=== PATIENT | male | born 1990 | race African-American/Black ===

== ENCOUNTER 2023-07-19 09:08 | Inpatient (IN) | payer OTHER ==
[~2023-07-19] VITALS: Ht 182.9 cm; Wt 96.0 kg
[~2023-07-19 09:08] MED LIST: CARA1TAB6 PO; CYMB1CAP5 PO; D 50CAP2 PO; DICL100G10 TOP; DULO1CAP4 PO; GABA-282 PO; GABA-284 PO; HYDR-3363 PO; LIDO1PAD TOP; OMEP10CASR PO; OMEP1CAP73 PO; PRAZ5CAP PO; RIZA5TAB2 PO
[2023-07-19] MEDS ORDERED: RIZA10TA2 PO (09:24)
[2023-07-19] MEDS ORDERED: GABA-282 (09:24)
[2023-07-19] MEDS ORDERED: HYDR50TA70 PO (09:24)
[2023-07-19 10:03] LABS: HEMATOCRIT 47.4 % (42.0-52.0); HEMOGLOBIN 14.9 g/dl (13.5-17.5); MEAN CORPUSCULAR HEMOGLOBIN 26.6 pg (27.0-33.0); MEAN CORPUSCULAR HGB CONC 31.4 g/dl (32.0-36.5); MEAN CORPUSCULAR VOLUME 84.5 fl (80.0-96.0); PLATELET COUNT, AUTOMATED 224 10^3/uL (150-450); RED BLOOD COUNT 5.61 10^6/uL (4.30-6.10); WHITE BLOOD COUNT 5.7 10^3/uL (4.0-10.0)
[2023-07-19 10:22] LABS: AMPHETAMINES LEVEL URINE NEGATIVE (NEGATIVE); BARBITURATES URINE NEGATIVE (NEGATIVE); BENZODIAZEPINES URINE NEGATIVE (NEGATIVE); COCAINE METABOLITE URINE NEGATIVE (NEGATIVE); METHADONE URINE NEGATIVE (NEGATIVE)
[2023-07-19 10:23] LABS: CANNABINOIDS URINE NEGATIVE (NEGATIVE); OPIATES URINE NEGATIVE (NEGATIVE); PHENCYCLIDINE URINE NEGATIVE (NEGATIVE)
[2023-07-19 10:33] LABS: ETHYL ALCOHOL (ETHANOL) < 0.003 % (0.000-0.010)
[2023-07-19 10:35] LABS: ALBUMIN 4.4 G/DL (3.2-5.2); ALKALINE PHOSPHATASE 63 U/L (46-116); ALT/SGPT 34 U/L (7.0-40); AST/SGOT 20 U/L (<34); BILIRUBIN,DIRECT 0.2 MG/DL (<0.4); BILIRUBIN,TOTAL 0.6 MG/DL (0.3-1.2); BLOOD UREA NITROGEN 10 MG/DL (9-23); CALCIUM LEVEL 9.7 MG/DL (8.5-10.1); CARBON DIOXIDE LEVEL 32 MMOL/L (20-31); CHLORIDE LEVEL 104 MMOL/L (98-107); CREATININE FOR GFR 0.93 MG/DL (0.70-1.30); GLOMERULAR FILTRATION RATE > 60.0 (>60); GLUCOSE, FASTING 89 MG/DL (60-100); POTASSIUM SERUM 4.1 MMOL/L (3.5-5.1); SALICYLATE LEVEL < 3.0 MG/DL (<30); SODIUM LEVEL 139 MMOL/L (136-145)
[2023-07-19 10:38] LABS: THYROID STIMULATING HORMONE 0.932 uIU/ML (0.55-4.78)
[2023-07-19] MEDS ORDERED: DULO30CA9 PO (11:01)
[2023-07-19] MEDS ORDERED: ACET500T15 PO (11:01)
[2023-07-19] MEDS ORDERED: HOME MED LIST COMPLETE! XX SCH (11:10)
[2023-07-19] MEDS ORDERED: MOM 30ML SUSPENSION UDC PO PRN (13:30)
[2023-07-19 15:02] VITALS: BP 136/84; TEMP 98.1; O2SAT 96
[2023-07-20] MEDS: ACETAMINOPHEN TAB 650MG DOSE (2X325MG) PO PRN (06:04)
[2023-07-20] MEDS: MAALOX 30 ML SUSP *UDC PO PRN (06:04)
[2023-07-20 06:52] VITALS: BP 128/98; TEMP 97.4; O2SAT 100
[2023-07-20] MEDS ORDERED: RIZATRIPTAN BENZOATE 10 MG TAB PO PRN (14:45)
[2023-07-20 16:04] VITALS: BP 129/79; TEMP 97.7; O2SAT 98
[2023-07-20] MEDS: SUCRALFATE 1 GM TAB PO SCH (16:54)
[2023-07-20] MEDS: hydrOXYzine 50 MG TAB PO SCH (21:11)
[2023-07-20] MEDS: AMITRIPTYLINE 10MG TABLET PO SCH (21:11)
[2023-07-20] MEDS: traZODone 50 MG TAB PO PRN (21:11)
[2023-07-20] MEDS: PRAZOSIN 1 MG CAP PO SCH (21:13)
[2023-07-21 06:48] VITALS: BP 119/60; TEMP 97.6; O2SAT 100
[2023-07-21] MEDS: LIDOCAINE 5% (LIDODERM) PATCH TOP SCH (08:19)
[2023-07-21] MEDS: OMEPRAZOLE 20MG CAP PO SCH (08:25)
[2023-07-21] MEDS: GABAPENTIN 300 MG CAP PO PRN (08:25)
[2023-07-21] MEDS: diphenhydrAMINE 25MG CAP PO PRN (08:25)
[2023-07-21] MEDS: DULoxetine 30MG CAPSULE (CYMBALTA) PO SCH (14:10)
[2023-07-21 16:31] VITALS: BP 138/65; TEMP 98; O2SAT 100
[2023-07-22 06:31] VITALS: BP 139/74; TEMP 98.1; O2SAT 100
[2023-07-22] MEDS: IBUPROFEN 400MG TAB PO PRN (08:29)
[2023-07-22] MEDS: DULoxetine 30MG CAPSULE (CYMBALTA) PO ONE (12:46)
[2023-07-22 15:27] VITALS: BP 143/86; TEMP 98; O2SAT 99
[2023-07-22 21:34] VITALS: BP 148/84
[2023-07-22 21:37] VITALS: BP 148/84
[2023-07-23 06:28] VITALS: BP 139/82; TEMP 97.7; O2SAT 99
[2023-07-23] MEDS: DULoxetine 30MG CAPSULE (CYMBALTA) PO SCH (08:25)
[2023-07-23] MEDS ORDERED: CYMB1CAP5 PO (09:28)
[2023-07-23] MEDS ORDERED: TRAZ-252 PO (09:28)
[2023-07-23] MEDS ORDERED: HYDR50TA70 PO (09:28)
== END 2023-07-23 13:21 | disposition home or self-care (01) | DRG 881 ==
LOC: M ED 09:08 → M ED INP 13:29 → M PSY 14:39
PROVIDERS: ADMIT Student in an Organized Health Care Education/Training Program; ATTEND Student in an Organized Health Care Education/Training Program
DX: F32.A Depression, unspecified (principal); R45.851 Suicidal ideations; Z91.82 Personal history of military deployment; Z79.899 Other long term (current) drug therapy; K21.9 Gastro-esophageal reflux disease without esophagitis; G47.33 Obstructive sleep apnea (adult) (pediatric); F41.9 Anxiety disorder, unspecified

== ENCOUNTER 2023-09-06 09:55 | Inpatient (IN) | payer OTHER ==
[~2023-09-06] VITALS: Ht 182.9 cm; Wt 95.5 kg
[~2023-09-06 09:55] MED LIST changes: +ACET500T15 PO; +DULO30CA9 PO; +GABA-282; +HYDR50TA70 PO; +RIZA10TA2 PO; +TRAZ-252 PO
[2023-09-06 10:43] LABS: HEMATOCRIT 43.4 % (42.0-52.0); MEAN CORPUSCULAR HEMOGLOBIN 26.9 pg (27.0-33.0); MEAN CORPUSCULAR HGB CONC 32.3 g/dl (32.0-36.5); MEAN CORPUSCULAR VOLUME 83.5 fl (80.0-96.0); PLATELET COUNT, AUTOMATED 204 10^3/uL (150-450); WHITE BLOOD COUNT 6.1 10^3/uL (4.0-10.0)
[2023-09-06 11:14] LABS: AMPHETAMINES LEVEL URINE NEGATIVE (NEGATIVE); BARBITURATES URINE NEGATIVE (NEGATIVE); BENZODIAZEPINES URINE NEGATIVE (NEGATIVE); CANNABINOIDS URINE NEGATIVE (NEGATIVE); COCAINE METABOLITE URINE NEGATIVE (NEGATIVE); METHADONE URINE NEGATIVE (NEGATIVE); OPIATES URINE NEGATIVE (NEGATIVE); PHENCYCLIDINE URINE NEGATIVE (NEGATIVE)
[2023-09-06 11:29] LABS: ETHYL ALCOHOL (ETHANOL) 0.003 % (0.000-0.010)
[2023-09-06 11:31] LABS: ALBUMIN 4.1 G/DL (3.2-5.2); ALKALINE PHOSPHATASE 59 U/L (46-116); ALT/SGPT 30 U/L (7.0-40); AST/SGOT 20 U/L (<34); BILIRUBIN,DIRECT 0.1 MG/DL (<0.4); BILIRUBIN,TOTAL 0.4 MG/DL (0.3-1.2); BLOOD UREA NITROGEN 10 MG/DL (9-23); CALCIUM LEVEL 9.7 MG/DL (8.5-10.1); CARBON DIOXIDE LEVEL 31 MMOL/L (20-31); CHLORIDE LEVEL 105 MMOL/L (98-107); GLOMERULAR FILTRATION RATE > 60.0 (>60); GLUCOSE, FASTING 88 MG/DL (60-100); POTASSIUM SERUM 3.8 MMOL/L (3.5-5.1); SALICYLATE LEVEL < 3.0 MG/DL (<30); SODIUM LEVEL 141 MMOL/L (136-145); TOTAL PROTEIN 7.2 G/DL (5.7-8.2)
[2023-09-06 11:33] LABS: THYROID STIMULATING HORMONE 1.015 uIU/ML (0.55-4.78)
[2023-09-06] MEDS ORDERED: DULO1CAP5 PO (13:05)
[2023-09-06] MEDS ORDERED: TRAZ-252 PO (13:08)
[2023-09-06] MEDS ORDERED: HOME MED LIST COMPLETE! XX SCH (13:10)
[2023-09-06] MEDS ORDERED: diphenhydrAMINE 25MG CAP PO PRN (15:10)
[2023-09-06] MEDS ORDERED: IBUPROFEN 400MG TAB PO PRN (15:10)
[2023-09-06] MEDS ORDERED: MAALOX 30 ML SUSP *UDC PO PRN (15:10)
[2023-09-06] MEDS ORDERED: MOM 30ML SUSPENSION UDC PO PRN (15:10)
[2023-09-06 16:48] VITALS: BP 134/98; TEMP 97.1; O2SAT 100
[2023-09-06] MEDS: traZODone 50 MG TAB PO PRN (20:36)
[2023-09-07 06:06] VITALS: BP 131/76; TEMP 98.1; O2SAT 99
[2023-09-07] MEDS: ACETAMINOPHEN TAB 650MG DOSE (2X325MG) PO PRN (08:23)
[2023-09-07] MEDS ORDERED: RIZATRIPTAN BENZOATE 10 MG TAB PO PRN (09:00)
[2023-09-07] MEDS: LIDOCAINE 5% (LIDODERM) PATCH TOP SCH (09:00)
[2023-09-07] MEDS: DULoxetine 30MG CAPSULE (CYMBALTA) PO SCH (09:11)
[2023-09-07] MEDS: OMEPRAZOLE 20MG CAP PO SCH (09:11)
[2023-09-07 09:13] VITALS: BP 145/91
[2023-09-07] MEDS: PRAZOSIN 1 MG CAP PO SCH (09:13)
[2023-09-07] MEDS ORDERED: SUCRALFATE 1 GM TAB PO SCH (12:00)
[2023-09-07] MEDS ORDERED: hydrOXYzine 50 MG TAB PO SCH (21:00)
== END 2023-09-07 10:24 | disposition home or self-care (01) | DRG 880 ==
LOC: M ED 10:43 → M ED INP 15:06 → M PSY 16:40
PROVIDERS: ADMIT Student in an Organized Health Care Education/Training Program; ATTEND Student in an Organized Health Care Education/Training Program
DX: F41.9 Anxiety disorder, unspecified (principal); R45.851 Suicidal ideations; F32.A Depression, unspecified; Z63.5 Disruption of family by separation and divorce; Z91.82 Personal history of military deployment; Z79.899 Other long term (current) drug therapy

== ENCOUNTER → 2023-12-20 | Outpatient (REF) ==
[~2023-12-20] MED LIST changes: +DULO1CAP5 PO
[2023-12-20 15:44] LABS: APPEARANCE, URINE HAZY (CLEAR); BACTERIA, URINE AUTO NEGATIVE (NEGATIVE); BILIRUBIN, URINE AUTO NEGATIVE (NEGATIVE); BLOOD, URINE BLOOD 1+ (NEGATIVE); COLOR, URINE YELLOW (YELLOW); GLUCOSE, URINE (UA) AUTO NEGATIVE (NEGATIVE); KETONE, URINE AUTO NEGATIVE (NEGATIVE); LEUKOCYTE ESTERASE, URINE AUTO NEGATIVE (NEGATIVE); MUCUS, URINE SMALL (NEGATIVE); NITRITE, URINE AUTO NEGATIVE (NEGATIVE); PROTEIN, URINE AUTO NEGATIVE (NEGATIVE); RBC, URINE AUTO 3 /HPF (0-3); SPECIFIC GRAVITY URINE AUTO 1.028 (1.002-1.035); SQUAMOUS EPITHELIAL CELL UR AU 0 /HPF (0-6); UROBILINOGEN, URINE AUTO 0.2 mg/dL (0.0-2.0); WBC, URINE AUTO 1 /HPF (0-3)
[2023-12-20 16:33] LABS: HEMOGLOBIN A1c 5.2 % (4.0-6.0)
== END ==
LOC: M PLAIMG 13:01
PROVIDERS: ATTEND Nurse Practitioner Family
DX: M26.609 Unspecified temporomandibular joint disorder, unspecified side (principal); R73.03 Prediabetes

== ENCOUNTER 2024-02-04 07:49 | Day surgery (SDC) | payer OTHER ==
[~2024-02-04] VITALS: Ht 182.9 cm; Wt 96.6 kg
[2024-02-04] MEDS: NS 1,000 ML IV ONE (08:04)
[2024-02-04] MEDS ORDERED: fentaNYL 100 MCG/2 ML INJECTION As Ordered ONE (08:45)
[2024-02-04] MEDS ORDERED: LIDOCAINE 2% 100MG/5ML SDV (FOR ANES.) As Ordered ONE (08:46)
[2024-02-04] MEDS ORDERED: propofoL 200 MG/20 ML VIAL As Ordered ONE (08:46)
[2024-02-04 09:36] VITALS: BP 137/93; O2SAT 95
== END 2024-02-04 09:41 | disposition home or self-care (01) ==
LOC: M OPP 07:49
PROVIDERS: ATTEND Internal Medicine Gastroenterology
DX: K31.84 Gastroparesis (principal); R13.10 Dysphagia, unspecified; R12 Heartburn; G47.33 Obstructive sleep apnea (adult) (pediatric); Z99.89 Dependence on other enabling machines and devices; Z79.1 Long term (current) use of non-steroidal anti-inflammatories (NSAID); Z79.899 Other long term (current) drug therapy
CPT/HCPCS: 43235; J3010

== ENCOUNTER 2024-02-06 09:38 | Emergency (ER) | payer OTHER ==
[~2024-02-06] VITALS: Ht 182.9 cm; Wt 95.2 kg
[2024-02-06] MEDS ORDERED: BACL10TA2 (09:55)
[2024-02-06] MEDS ORDERED: MONT10TA97 (09:55)
[2024-02-06] MEDS ORDERED: AMIT25TA19 (09:55)
[2024-02-06] MEDS ORDERED: LEXA5TAB13 (09:55)
[2024-02-06 11:31] LABS: BASO % 0.5 % (0.0-1.0); EOS # 0.1 10^3/uL (0.0-0.5); EOS % 2.4 % (0.0-3.0); HEMOGLOBIN 14.8 g/dl (13.5-17.5); LYMPH # 2.4 10^3/uL (1.5-5.0); LYMPH % 44.7 % (24.0-44.0); MEAN CORPUSCULAR HEMOGLOBIN 26.9 pg (27.0-33.0); MEAN CORPUSCULAR HGB CONC 32.2 g/dl (32.0-36.5); MEAN CORPUSCULAR VOLUME 83.5 fl (80.0-96.0); MONO # 0.4 10^3/uL (0.0-0.8); MONO % 8.1 % (2.0-8.0); NEUTROPHILS # 2.4 10^3/uL (1.5-8.5); NEUTROPHILS % 44.3 % (36.0-66.0); PLATELET COUNT, AUTOMATED 217 10^3/uL (150-450); RED BLOOD COUNT 5.51 10^6/uL (4.30-6.10); WHITE BLOOD COUNT 5.5 10^3/uL (4.0-10.0)
[2024-02-06 11:35] LABS: ERYTHROCYTE SEDIMENTATION RATE 32 mm/hr (0-15)
[2024-02-06] MEDS: PROCHLORPERAZINE 10MG 2ML VIAL IV ONE (11:36)
[2024-02-06] MEDS: diphenhydrAMINE 50MG/ML VIAL IV STA (11:36)
[2024-02-06 11:58] LABS: C REACTIVE PROTEIN QUANTITATIV < 0.40 MG/DL (<1.0)
[2024-02-06 11:59] LABS: BLOOD UREA NITROGEN 10 MG/DL (9-23); CALCIUM LEVEL 9.5 MG/DL (8.5-10.1); CARBON DIOXIDE LEVEL 30 MMOL/L (20-31); CHLORIDE LEVEL 105 MMOL/L (98-107); CREATININE FOR GFR 0.83 MG/DL (0.70-1.30); GLOMERULAR FILTRATION RATE > 60.0 (>60); GLUCOSE, FASTING 91 MG/DL (60-100); POTASSIUM SERUM 4.7 MMOL/L (3.5-5.1); SODIUM LEVEL 137 MMOL/L (136-145)
[2024-02-06 12:18] VITALS: BP 123/73; TEMP 98.1; O2SAT 100
[2024-02-11 09:02] LABS: Babesia microti NOT DETECTED (NOT DETECT)
[2024-02-11 10:27] LABS: Ehrlichia chaffeensis NOT DETECTED (NOT DETECT)
[2024-02-11 11:37] LABS: Anaplasma phagocytophilum NOT DETECTED (NOT DETECT)
[2024-02-11 12:01] LABS: BORRELIA SPECIES DNA NOT DETECTED (NOT DETECT)
== END 2024-02-06 12:26 | disposition home or self-care (01) ==
LOC: M ED 09:38
DX: G44.219 Episodic tension-type headache, not intractable (principal); F43.10 Post-traumatic stress disorder, unspecified; F41.9 Anxiety disorder, unspecified; M54.50 Low back pain, unspecified; Z79.1 Long term (current) use of non-steroidal anti-inflammatories (NSAID); Z79.83 Long term (current) use of bisphosphonates; Z79.899 Other long term (current) drug therapy
CPT/HCPCS: 70450; 80048; 85025; 85652; 86140; 87468; 87469; 87478; 87484; 87801; 96374; 99284; J0780; J1200

== ENCOUNTER → 2024-05-20 | Outpatient (CLI) | payer OTHER ==
[~2024-05-20] MED LIST changes: +AMIT25TA19 PO; +BACL10TA2 PO; +GABA-1172; +GABA-1172 PO; -GABA-282; -GABA-282 PO; +LEXA5TAB13 PO; +MONT10TA97 PO
== END ==
LOC: M RAD 07:55
PROVIDERS: ATTEND Nurse Practitioner Family
DX: R11.2 Nausea with vomiting, unspecified (principal)